=== PATIENT | male | born 1960 | race Caucasian/White ===

== ENCOUNTER 2024-05-15 14:45 | Emergency (ER) | payer BC ==
[2024-05-15] MEDS: Lidocaine 1% 5 ML VIAL INJECT ONE (17:45)
[2024-05-15] MEDS: Bacitracin Oint 1 GM U/D Packet TOP ONE (18:01)
[2024-05-15] MEDS: Diphtheria,Pertussis(Acell),Tetanus Vaccine 0.5 ML Syringe IM ONE (18:02)
== END 2024-05-15 18:09 | disposition home or self-care (01) ==
LOC: JP.ED 14:45
DX: S60.352A Superficial foreign body of left thumb, initial encounter (principal); E78.00 Pure hypercholesterolemia, unspecified; Z79.899 Other long term (current) drug therapy; Z23 Encounter for immunization; W45.8XXA Other foreign body or object entering through skin, initial encounter
CPT/HCPCS: 90471; 90715; 99283; 99283-25